=== PATIENT | male | born 1990 | race Caucasian/White ===

== ENCOUNTER 2020-11-25 04:41 | Emergency (ER) | payer MEDICAID, OTHER ==
[~2020-11-25] VITALS: Ht 180.3 cm; Wt 75.7 kg
--- NOTE | 2020-11-25 04:41 | NUR ---
Placed in room 2 . Placed on phototypesetting equipment monitor, blood pressure machine and pulse oximeter. To gown for exam. Side rails up. Report given to Efraín SAMPSON.
[2020-11-25 04:42] VITALS: BP_SYST 122
--- NOTE | 2020-11-25 04:42 | NUR ---
EKG performed at [facility]. Physician given copy of EKG for review.
--- NOTE | 2020-11-25 04:50 | NUR ---
# 18 gauge angiocath placed to LEFT AC. Use of asceptic technique. Opsite placed over site. Blood return noted. Blood for lab drawn from site. Flushed with 10 cc of normal saline. No evidence of infiltration noted. Patient tolerated well.
--- NOTE | 2020-11-25 04:55 | NUR ---
DR. GALVAN AT BEDSIDE FOR EVALUATION.
--- NOTE | 2020-11-25 05:00 | NUR ---
PATIENT AAOX4 AND AMBULATORY FROM HOME C/O CHEST PAIN STARTING AROUND 3AM. PER PATIENT HE IS HAVING RIGHT SIDED FACIAL NUMBNESS AND RIGHT ARM NUMBESS. +HEADACHE. STATING 10/10 ON THE PAIN SCALE. VSS. NO SLURRED SPEECH NOTED. DENIES ANY VISUAL CHANGES. PER PATIENT STATED HE WAS LAST WELL KNOWN AT MIDNIGHT. PER PATIENT WHEN TALKING TO FAMILY THAT STATED HE HAD "SLURRED SPEECH". HX OF CARDIAC ISSUES WITH PACEMAKER.
--- NOTE | 2020-11-25 05:08 | NUR ---
CODE STROKE INITIATED AT THIS TIME.
--- NOTE | 2020-11-25 05:14 | NUR ---
PT TAKEN TO CT SCAN VIA GURNEY BY RN AND RADIOLOGY STAFF. VSS
[2020-11-25 05:20] LABS: BASOPHILS # (AUTO) 0.1 K/uL (0.0-0.2); BASOPHILS % (AUTO) 1.3 % (0.0-2.0); EOSINOPHILS # (AUTO) 0.2 K/uL (0.0-0.4); EOSINOPHILS % (AUTO) 3.8 % (0.0-4.0); HEMATOCRIT 44.2 % (36-54); HEMOGLOBIN 15.5 g/dL (14.0-18.0); LYMPHOCYTES # (AUTO) 1.6 K/uL (1.0-5.5); LYMPHOCYTES % (AUTO) 32.4 % (20.5-51.5); MEAN CORPUSCULAR HEMOGLOBIN 32 pg (27-31); MEAN CORPUSCULAR HGB CONC 35 % (32-36); MEAN CORPUSCULAR VOLUME 90 fL (79.0-98.0); MONOCYTES # (AUTO) 0.3 K/uL (0.0-1.0); MONOCYTES % (AUTO) 6.8 % (1.7-9.3); NEUTROPHILS # (AUTO) 2.7 K/uL (1.8-7.7); NEUTROPHILS % (AUTO) 55.7 % (40.0-70.0); PLATELET COUNT (AUTO) 203 K/uL (130-430); RED BLOOD CELL COUNT(AUTO) 4.89 MIL/uL (4.2-6.2); RED CELL DISTRIBUTION WIDTH 12.4 % (9.0-15.0); WHITE BLOOD COUNT (AUTO) 4.9 K/uL (4.8-10.8)
--- NOTE | 2020-11-25 05:20 | NUR ---
PT BACK FROM CT SCAN IN STABLE CONDITION.
[2020-11-25 05:23] LABS: CALCIUM 9.2 mg/dL (8.4-11.0); CREATININE 0.8 mg/dL (0.55-1.30); POTASSIUM 3.8 mmol/L (3.5-5.1)
--- NOTE | 2020-11-25 05:26 | NUR ---
FASTING BLOOD SUGAR 121. MD GALVAN NOTIFIED.
[2020-11-25 05:27] LABS: PROTHROMBIN TIME 10.3 SECS (9.5-12.5)
[2020-11-25 05:28] LABS: TOTAL BILIRUBIN 0.5 mg/dL (0.0-1.0)
--- NOTE | 2020-11-25 05:33 | NUR ---
DR. GALVAN ON THE PHONE WITH [facility].
--- NOTE | 2020-11-25 05:34 | NUR ---
CT OF HEAD NEGATIVE. CODE STROKE CLEARED BY NEUROLOGIST/MD GALVAN.
--- NOTE | 2020-11-25 05:39 | NUR ---
PORTABLE XRAY DONE AT [facility].
--- NOTE | 2020-11-25 05:48 | NUR ---
# 20 gauge angiocath placed to RIGHT FA. Use of asceptic technique. Opsite placed over site. Blood return noted. Flushed with 10 cc of normal saline. No evidence of infiltration noted. Patient tolerated well.
[2020-11-25] MEDS ORDERED: MORPHINE 4 MG INJ. 4 MG/ML VIAL IVP ONE ×3 (05:50→13:30)
[2020-11-25] MEDS ORDERED: ONDANSETRON HCL 4 MG/2 ML VIAL IVP ONE (05:50)
[2020-11-25] MEDS ORDERED: ASPIRIN 325 MG TABLET PO ONE (06:00)
--- NOTE | 2020-11-25 06:07 | NUR ---
MEDICATION ADMINISTERED ORDERED.
--- NOTE | 2020-11-25 06:36 | NUR ---
SWALLOW SCREEN PASSED. PT HAD NO DIFFICULTIES SWALLOWING. NO DROOLING OR COUGH NOTED.
--- NOTE | 2020-11-25 06:47 | NUR ---
COVID SWAB COLLECTED AND SENT TO LAB FOR ANALYSIS.
--- NOTE | 2020-11-25 07:16 | NUR ---
REPORT GIVEN TO CAMILLA DEL VALLE. TO ASSUME ALL CARE OF PATIENT. JESUS AT [facility]. S.
[2020-11-25] MEDS ORDERED: IOHEXOL 350 mgI/mL, 150 ML INFUS..BTL IV ONE (07:25)
--- NOTE | 2020-11-25 07:27 | NUR ---
Patient transported to radiology via wheelchair, accompanied by staff.
--- NOTE | 2020-11-25 08:03 | NUR ---
on tele call with neurologist
--- NOTE | 2020-11-25 08:15 | NUR ---
arrangements being made for admission/transfer
[2020-11-25] MEDS ORDERED: NITROGLYCERIN LINGUAL 400 mCg/SPRAY ONE (08:29)
[2020-11-25] MEDS ORDERED: NITROGLYCERIN LINGUAL 400 mCg/SPRAY TL ONE ×2 (08:30)
--- NOTE | 2020-11-25 08:30 | NUR ---
Pt. c/o returning chest pain notified Dr. Blank, order for nitro spray
[2020-11-25] MEDS ORDERED: COR3.125 PO (09:21)
[2020-11-25] MEDS ORDERED: VALS80TA2 PO (09:22)
--- NOTE | 2020-11-25 09:22 | NUR ---
Medication reconciliation completed with information provided by patient. Any prior medication reconciliation on file was reviewed and corrected.
[2020-11-25 10:20] LABS: BILIRUBIN,URINE NEGATIVE (NEGATIVE); BLOOD, URINE NEGATIVE (NEGATIVE); CLARITY/URINE CLEAR (CLEAR); COLOR,URINE YELLOW (YELLOW); GLUCOSE,URINE NEGATIVE (NEGATIVE); KETONES,URINE NEGATIVE (NEGATIVE); LEUKOCYTE ESTERASE ,URINE NEGATIVE (NEGATIVE); NITRITE, URINE NEGATIVE (NEGATIVE); PROTEIN URINE NEGATIVE (NEGATIVE); UROBILINOGEN,URINE 0.2 (0.2-1.0)
--- NOTE | 2020-11-25 10:21 | NUR ---
family at bedside
[2020-11-25 10:51] LABS: BARBITURATE, URINE NEGATIVE (NEG <=200); METHAMPHETAMINES SCREEN,URINE NEGATIVE (NEG <=500); URINE AMPHETAMINE NEGATIVE (NEG <=500)
[2020-11-25 10:52] LABS: BENZODIAZEPINE, URINE NEGATIVE (NEG <=150); COCAINE, URINE NEGATIVE (NEG <=150); URINE METHADONE NEGATIVE (NEG <=200)
[2020-11-25 10:53] LABS: CANNABINOID, URINE NEGATIVE (NEG <=50); OPIATE, URINE POSITIVE (NEG <=100); PHENCYCLIDINE SCREEN,URINE NEGATIVE (NEG <=25)
[2020-11-25 10:54] LABS: UR TRICYCLIC ANTIDEPRESSANTS NEGATIVE (NEG <=300); URINE PROPOXYPHENE SCREEN NEGATIVE (NEG <=300)
[2020-11-25 10:58] LABS: URINE OXYCODONE SCREEN POSITIVE (NEG <=100)
--- NOTE | 2020-11-25 13:21 | NUR ---
SPOKE WITH [facility] AND RECEIVED TRANSFER INFORMATION, GOING TO ICU-2 AT [facility], REPORT NUMBER IS [phone], ETA IS [facility] ARRIVAL TIME IS APPROX 1430
--- NOTE | 2020-11-25 13:23 | NUR ---
pt. c/o chest pain 07/29 requesting morphine, notified Dr. Blank, family remain at bedside, pts. transfer to [facility] ETA is [phone]
--- NOTE | 2020-11-25 14:22 | NUR ---
Patient to be transferred to [place]. Is being transferred due to higher level of care. Receiving facility has accepting physician and available space. ER physician has signed transfer form. Patient or responsible libertarian has agreed to transfer and signed form. Patient belongings inventoried and will be sent with patient. Copy of nursing notes, lab reports, EKG, Physicians Orders and X-rays to be sent with patient. Report called to Vickie at receiving facility. [facility] has been called for transfer.
[2020-11-25 14:23] VITALS: BP_SYST 114
== END 2020-11-25 14:22 | disposition critical access hospital (66) ==
LOC: SED 04:41
DX: G45.9 Transient cerebral ischemic attack, unspecified (principal); Z20.822 Contact with and (suspected) exposure to COVID-19
CPT/HCPCS: 36415; 70450; 70496; 70498; 71045; 71275; 76376; 80048; 80053; 80307; 81003; 82962; 84484; 85025; 85610; 85730; 86886; 86900; 86901; 87426; 93005; 96374; 96375; 96376; 99285; J2270; J2405; Q9967

== ENCOUNTER 2022-10-05 23:16 | Emergency (ER) | payer MEDICAID ==
[~2022-10-05] VITALS: Ht 180.3 cm; Wt 71.7 kg
[~2022-10-05 23:16] MED LIST: COR3.125 PO; VALS80TA2 PO
[2022-10-05 23:37] VITALS: BP_SYST 131; PULSE 100; RESP 17; TEMP 98.1; O2SAT 100
[2022-10-06] MEDS ORDERED: IBUPROFEN 600 MG TABLET PO ONE (00:30)
[2022-10-06 00:43] LABS: BASOPHILS % (AUTO) 0.8 % (0.0-2.0); EOSINOPHILS # (AUTO) 0.1 K/uL (0.0-0.4); EOSINOPHILS % (AUTO) 2.9 % (0.0-4.0); HEMATOCRIT 41.1 % (36-54); HEMOGLOBIN 14.5 g/dL (14.0-18.0); LYMPHOCYTES # (AUTO) 1.6 K/uL (1.0-5.5); LYMPHOCYTES % (AUTO) 31.7 % (20.5-51.5); MEAN CORPUSCULAR HEMOGLOBIN 33 pg (27-31); MEAN CORPUSCULAR HGB CONC 35 % (32-36); MEAN CORPUSCULAR VOLUME 93 fL (79.0-98.0); MONOCYTES # (AUTO) 0.3 K/uL (0.0-1.0); NEUTROPHILS # (AUTO) 3.1 K/uL (1.8-7.7); NEUTROPHILS % (AUTO) 59.6 % (40.0-70.0); PLATELET COUNT (AUTO) 227 K/uL (130-430); RED BLOOD CELL COUNT(AUTO) 4.41 MIL/uL (4.2-6.2); RED CELL DISTRIBUTION WIDTH 14.8 % (9.0-15.0); WHITE BLOOD COUNT (AUTO) 5.1 K/uL (4.8-10.8)
[2022-10-06 01:02] LABS: ANION GAP 10 (5-15); CALCIUM 8.5 mg/dL (8.4-11.0); CARBON DIOXIDE 28 mmol/L (23-29); CHLORIDE 103 mmol/L (98-107); CREATININE 1.05 mg/dL (0.55-1.30); GFR AFRICAN AMERICAN 105 mL/min (>90); GLUCOSE 125 mg/dL (74-106); POTASSIUM 3.8 mmol/L (3.5-5.1); SODIUM SERUM 141 mmol/L (136-145); UREA NITROGEN, BLOOD 10 mg/dL (8-21)
[2022-10-06 01:04] LABS: GFR NON AFRICAN-AMERICAN 86 mL/min (>90)
[2022-10-06 01:10] LABS: ALANINE AMINOTRANSFERASE 233 U/L (12-78); ASPARTATE AMINOTRANSFERASE 150 U/L (10-37); TOTAL BILIRUBIN 0.8 mg/dL (0.0-1.0); TOTAL PROTEIN, SERUM 7.4 g/dL (6.4-8.3)
[2022-10-06] MEDS ORDERED: CAPS60CR4 TP (02:15)
[2022-10-06] MEDS ORDERED: CYCL10TA24 PO (02:15)
[2022-10-06] MEDS ORDERED: HYDR-500 PO (02:15)
[2022-10-06 02:23] VITALS: BP_SYST 119; PULSE 91; RESP 18; O2SAT 94
== END 2022-10-06 02:23 | disposition home or self-care (01) ==
LOC: SED 23:16
DX: R07.89 Other chest pain (principal); G47.00 Insomnia, unspecified; Z79.899 Other long term (current) drug therapy
CPT/HCPCS: 36415; 71045; 80053; 83880; 84484; 85025; 93005; 99285